=== PATIENT | female | born 1930 | race Caucasian/White ===

== ENCOUNTER 2019-10-31 17:00 | Inpatient (IN) | payer MEDICARE, MEDICAID ==
[~2019-10-31] VITALS: Ht 152.4 cm; Wt 41.7 kg
[~2019-10-31 17:00] MED LIST: CLOP75TA4 PO
[2019-10-31 18:15] LABS: BASOPHILS % 0.7 % (0.0-2.0); EOSINOPHILS % 0.3 % (0.0-5.0); HEMATOCRIT. 39.8 % (36.0-48.0); HEMOGLOBIN. 12.9 g/dL (12.0-16.0); LYMPHOCYTES % 9.6 % (20.0-50.0); MEAN CORPUSCULAR VOLUME 95.2 fL (81.0-99.0); MEAN PLATELET VOLUME 9.8 fl (7.4-10.4); MONOCYTES % 6.9 % (2.0-8.0); NEUTROPHILS % 82.5 % (40.0-76.0); PLATELET 199 x1000/uL (130-400); RED BLOOD CELL COUNT 4.18 mill/uL (4.2-5.4); RED CELL DISTRIBUTION WIDTH 14.4 % (11.6-14.6)
[2019-10-31 18:22] LABS: CHLORIDE 115 mEq/L (98-107)
[2019-10-31] MEDS ORDERED: MAGNESIUM/ALUMINUM HYDROXIDE/SIMETHICONE 30ML UDC PO PRN (22:45)
[2019-10-31] MEDS ORDERED: DOCUSATE SODIUM 100MG CAPSULE PO PRN (22:45)
[2019-10-31] MEDS ORDERED: ONDANSETRON HCL 4MG/2ML INJ IV PRN (22:45)
[2019-10-31] MEDS ORDERED: GUAIFENESIN 200MG/10ML SUGAR FREE UDC PO PRN (22:45)
[2019-10-31] MEDS ORDERED: MORPHINE SULFATE 2 MG/ML CPJ (NOT FOR IM USE) IV PRN (22:45)
[2019-11-01] MEDS: DEXT 5%/0.45% NACL 1000ML 1,000 ML IV SCH ×2 (01:15→14:40)
[2019-11-01 02:18] LABS: CLARITY URINE CLOUDY (CLEAR); COLOR URINE YELLOW (YELLOW); KETONES URINE TRACE (NEGATIVE); LEUKOCYTE ESTERASE URINE 3+ (NEGATIVE); NITRITE URINE POSITIVE (NEGATIVE); OCCULT BLOOD URINE 1+ (NEGATIVE); PH URINE 5.5 (4.5-8.0); PROTEIN URINE 1+ (NEGATIVE); SPECIFIC GRAVITY URINE 1.021 (1.005-1.030)
[2019-11-01 05:25] LABS: HEMOGLOBIN. 12.2 g/dL (12.0-16.0); MEAN CORPUSCULAR HEMOGLOBIN 31.5 pg (28.0-32.0); MEAN CORPUSCULAR VOLUME 95.4 fL (81.0-99.0); MEAN PLATELET VOLUME 9.1 fl (7.4-10.4); PLATELET 197 x1000/uL (130-400); RED BLOOD CELL COUNT 3.88 mill/uL (4.2-5.4); RED CELL DISTRIBUTION WIDTH 14.1 % (11.6-14.6)
[2019-11-01 05:29] LABS: CHLORIDE 116 mEq/L (98-107)
[2019-11-01 06:48] LABS: PLATELET ESTIMATE NORMAL
[2019-11-01] MEDS: MULTIVITAMINS,THER W-MINERALS TABLET PO SCH (10:01)
[2019-11-01 21:35] VITALS: BP 111/61
[2019-11-01 21:50] VITALS: BP 115/68
[2019-11-01 22:00] VITALS: BP 127/69
[2019-11-02] VITALS (7 sets, daily range): BP systolic 99–157; BP diastolic 52–74
[2019-11-02] MEDS: DEXT 5%/0.45% NACL 1000ML 1,000 ML IV SCH ×2 (02:56→13:36)
[2019-11-02] MEDS: ENOXAPARIN 30MG/0.3ML SYR SUBCUT SCH (10:23)
[2019-11-02] MEDS: MULTIVITAMINS,THER W-MINERALS TABLET PO SCH (10:23)
[2019-11-02] MEDS: CEFTRIAXONE 1 G PREMIX 50 ML IV SCH (13:33)
[2019-11-02] MEDS: AZITHROMYCIN 250 MG TABLET PO SCH (13:33)
[2019-11-03] VITALS: BP 144/81
[2019-11-03] MEDS: DEXT 5%/0.45% NACL 1000ML 1,000 ML IV SCH ×2 (03:09→20:30)
[2019-11-03 04:00] VITALS: BP 109/64
[2019-11-03 08:00] VITALS: BP 114/60
[2019-11-03] MEDS: MULTIVITAMINS,THER W-MINERALS TABLET PO SCH (08:54)
[2019-11-03] MEDS: CEFTRIAXONE 1 G PREMIX 50 ML IV SCH (08:54)
[2019-11-03] MEDS: AZITHROMYCIN 250 MG TABLET PO SCH (08:54)
[2019-11-03] MEDS: ENOXAPARIN 30MG/0.3ML SYR SUBCUT SCH (08:55)
[2019-11-03 12:00] VITALS: BP 144/57
[2019-11-03 16:00] VITALS: BP 120/58
[2019-11-03 20:00] VITALS: BP_SYST 114; BP_SYST 126; BP_DIAS 61; BP_DIAS 63
[2019-11-04] VITALS (7 sets, daily range): BP systolic 117–156; BP diastolic 37–100
[2019-11-04] MEDS: DEXT 5%/0.45% NACL 1000ML 1,000 ML IV SCH ×2 (06:53→18:28)
[2019-11-04] MEDS: ENOXAPARIN 30MG/0.3ML SYR SUBCUT SCH (08:58)
[2019-11-04] MEDS: MULTIVITAMINS,THER W-MINERALS TABLET PO SCH (08:58)
[2019-11-04] MEDS: AZITHROMYCIN 250 MG TABLET PO SCH (08:58)
[2019-11-04] MEDS: CEFTRIAXONE 1 G PREMIX 50 ML IV SCH (08:59)
[2019-11-05] VITALS: BP 143/55
[2019-11-05 04:00] VITALS: BP 123/68
[2019-11-05 08:00] VITALS: BP 137/61
[2019-11-05] MEDS: MULTIVITAMINS,THER W-MINERALS TABLET PO SCH (08:30)
[2019-11-05] MEDS: AZITHROMYCIN 250 MG TABLET PO SCH (08:30)
[2019-11-05] MEDS: ENOXAPARIN 30MG/0.3ML SYR SUBCUT SCH (08:30)
[2019-11-05] MEDS: CEFTRIAXONE 1 G PREMIX 50 ML IV SCH (08:30)
[2019-11-05] MEDS: DEXT 5%/0.45% NACL 1000ML 1,000 ML IV SCH ×2 (08:35→21:31)
[2019-11-05 12:00] VITALS: BP 141/61
[2019-11-05 16:00] VITALS: BP 134/88
[2019-11-05 20:00] VITALS: BP_SYST 170; BP_SYST 172; BP_DIAS 76; BP_DIAS 84
[2019-11-05] MEDS: CLONIDINE 0.1MG TABLET PO PRN (21:32)
[2019-11-06] VITALS: BP 145/67
[2019-11-06 04:00] VITALS: BP 147/63
[2019-11-06 08:00] VITALS: BP_SYST 144; BP_SYST 146; BP_DIAS 72; BP_DIAS 76
[2019-11-06] MEDS: AZITHROMYCIN 250 MG TABLET PO SCH (09:00)
[2019-11-06] MEDS: MULTIVITAMINS,THER W-MINERALS TABLET PO SCH (09:00)
[2019-11-06] MEDS: CEFTRIAXONE 1 G PREMIX 50 ML IV SCH (09:21)
[2019-11-06] MEDS: ENOXAPARIN 30MG/0.3ML SYR SUBCUT SCH (09:22)
[2019-11-06] MEDS: DEXT 5%/0.45% NACL 1000ML 1,000 ML IV SCH (11:00)
[2019-11-06 12:00] VITALS: BP 162/80
[2019-11-06] MEDS: CLONIDINE 0.1MG TABLET PO PRN ×2 (13:46→21:53)
[2019-11-06 16:00] VITALS: BP 150/76
[2019-11-06 20:00] VITALS: BP_SYST 177; BP_DIAS 83; BP_DIAS 96
[2019-11-06] MEDS ORDERED: LORAZEPAM 2MG/ML CPJ IV PRN (20:00)
[2019-11-07] VITALS (7 sets, daily range): BP systolic 115–217; BP diastolic 69–89
[2019-11-07] MEDS: DEXT 5%/0.45% NACL 1000ML 1,000 ML IV SCH ×2 (04:56→13:42)
[2019-11-07] MEDS: MULTIVITAMINS,THER W-MINERALS TABLET PO SCH (08:31)
[2019-11-07] MEDS: ENOXAPARIN 30MG/0.3ML SYR SUBCUT SCH (08:32)
[2019-11-07] MEDS: CLONIDINE 0.1MG TABLET PO PRN ×2 (13:42→21:29)
[2019-11-08] VITALS: BP 117/40
[2019-11-08] MEDS: DEXT 5%/0.45% NACL 1000ML 1,000 ML IV SCH ×2 (03:43→18:19)
[2019-11-08] MEDS: ACETAMINOPHEN 325MG TABLET PO PRN (03:59)
[2019-11-08 04:00] VITALS: BP 113/39
[2019-11-08 08:00] VITALS: BP 115/29
[2019-11-08] MEDS: MULTIVITAMINS,THER W-MINERALS TABLET PO SCH (09:33)
[2019-11-08] MEDS: ENOXAPARIN 30MG/0.3ML SYR SUBCUT SCH (09:33)
[2019-11-08 12:00] VITALS: BP 138/45
[2019-11-08 16:00] VITALS: BP 136/69
[2019-11-08 20:00] VITALS: BP 153/68
[2019-11-09] VITALS: BP 140/57
[2019-11-09 04:00] VITALS: BP 109/49
[2019-11-09] MEDS: DEXT 5%/0.45% NACL 1000ML 1,000 ML IV SCH ×2 (07:10→21:00)
[2019-11-09] MEDS: ENOXAPARIN 30MG/0.3ML SYR SUBCUT SCH (09:00)
[2019-11-09 09:03] VITALS: BP 135/68
[2019-11-09 12:24] VITALS: BP 92/64
[2019-11-09] MEDS: MULTIVITAMINS,THER W-MINERALS TABLET PO SCH (13:34)
[2019-11-09 17:00] VITALS: BP 138/56
[2019-11-09 20:00] VITALS: BP 135/67
[2019-11-10] VITALS: BP 114/68
[2019-11-10 04:00] VITALS: BP 135/64
[2019-11-10] MEDS: ENOXAPARIN 30MG/0.3ML SYR SUBCUT SCH (07:56)
[2019-11-10] MEDS: MULTIVITAMINS,THER W-MINERALS TABLET PO SCH (07:56)
[2019-11-10 08:00] VITALS: BP 148/74
[2019-11-10] MEDS: DEXT 5%/0.45% NACL 1000ML 1,000 ML IV SCH ×2 (11:27→22:39)
[2019-11-10 12:00] VITALS: BP 149/65
[2019-11-10] MEDS: ACETAMINOPHEN 325MG TABLET PO PRN (15:34)
[2019-11-10 16:00] VITALS: BP 135/67
[2019-11-10 20:00] VITALS: BP 143/70
[2019-11-11] VITALS: BP 171/75
[2019-11-11 02:00] VITALS: BP 139/69
[2019-11-11 04:00] VITALS: BP 155/75
[2019-11-11 08:00] VITALS: BP 142/70
[2019-11-11] MEDS: MULTIVITAMINS,THER W-MINERALS TABLET PO SCH (09:00)
[2019-11-11] MEDS: DEXT 5%/0.45% NACL 1000ML 1,000 ML IV SCH (09:21)
[2019-11-11 12:00] VITALS: BP 150/60
== END 2019-11-11 14:30 | DRG 871 ==
LOC: ER 17:00 → EDBEDREQTM 19:28 → EDBEDREQ 19:28 → ENRESERV 11-01 15:17 → 7EST 11-01 19:24 → 7WST 11-09 04:26
PROVIDERS: ADMIT Hospitalist; ATTEND Hospitalist
DX: A41.89 Other specified sepsis (principal); U07.1 COVID-19; J12.89 Other viral pneumonia; E43 Unspecified severe protein-calorie malnutrition; J96.01 Acute respiratory failure with hypoxia; G93.40 Encephalopathy, unspecified; N39.0 Urinary tract infection, site not specified; Z68.1 Body mass index [BMI] 19.9 or less, adult; A41.51 Sepsis due to Escherichia coli [E. coli]; E11.9 Type 2 diabetes mellitus without complications; F03.90 Unspecified dementia, unspecified severity, without behavioral disturbance, psychotic disturbance, mood disturbance, and anxiety; I10 Essential (primary) hypertension; J20.8 Acute bronchitis due to other specified organisms; R62.7 Adult failure to thrive; G90.8 Other disorders of autonomic nervous system; Z86.73 Personal history of transient ischemic attack (TIA), and cerebral infarction without residual deficits
CPT/HCPCS: 36415; 71045; 80053; 81003; 82962; 84484; 85025; 87077; 87186; 93005; 99285; J0696; J1650; J2060; U0003